=== PATIENT | male | born 1970 | race Hispanic/Latino ===

== ENCOUNTER 2020-12-16 07:57 | Emergency (ER) | payer OTHER, BC ==
[~2020-12-16] VITALS: Ht 175.3 cm; Wt 76.2 kg
[2020-12-16] MEDS ORDERED: IBUPROFEN 200 MG TAB PO ONE (08:15)
[2020-12-16] MEDS ORDERED: IBUPROFEN IB200 MG PO (08:20)
[2020-12-16] MEDS ORDERED: ACETAMINOPHEN500 MG PO (08:20)
[2020-12-16] MEDS ORDERED: IBUPROFEN 600 MG TAB ONE (08:40)
== END 2020-12-16 09:24 | disposition home or self-care (01) ==
LOC: FSED 08:09
DX: S16.1XXA Strain of muscle, fascia and tendon at neck level, initial encounter (principal); M25.511 Pain in right shoulder; M25.551 Pain in right hip; V53.5XXA Driver of pick-up truck or van injured in collision with car, pick-up truck or van in traffic accident, initial encounter; Y92.488 Other paved roadways as the place of occurrence of the external cause; I10 Essential (primary) hypertension; E78.5 Hyperlipidemia, unspecified
CPT/HCPCS: 72040; 99283